=== PATIENT | male | born 1970 | race African-American/Black ===

== ENCOUNTER 2017-10-27 09:34 | Day surgery (SDC) | payer OTHER ==
[~2017-10-27] VITALS: Ht 182.9 cm; Wt 104.5 kg
[~2017-10-27 09:34] MED LIST: ATARAX,VISTARIL50 MG PO; NAPROSYN500 MG PO; OXYCODONE HCL10 MG PO; OXYCONTIN15 MG PO; SKELAXIN800 MG PO
== END 2017-10-27 10:45 | disposition home or self-care (01) ==
LOC: PAIN 09:34 → SDC 10:00 → PAIN 10:45
DX: M47.26 Other spondylosis with radiculopathy, lumbar region (principal); M51.16 Intervertebral disc disorders with radiculopathy, lumbar region; G89.29 Other chronic pain; M48.061 Spinal stenosis, lumbar region without neurogenic claudication; M16.0 Bilateral primary osteoarthritis of hip; F17.200 Nicotine dependence, unspecified, uncomplicated; Z79.891 Long term (current) use of opiate analgesic; E66.3 Overweight; Z68.31 Body mass index [BMI] 31.0-31.9, adult
CPT/HCPCS: J1030; J2250; J3010; S0020

== ENCOUNTER 2017-11-03 09:36 | Day surgery (SDC) | payer OTHER ==
[~2017-11-03] VITALS: Ht 182.9 cm; Wt 106.5 kg
[2017-11-03] MEDS ORDERED: MELOXICAM15 MG PO (10:07)
== END 2017-11-03 11:25 | disposition home or self-care (01) ==
LOC: PAIN 09:36 → SDC 10:00 → PAIN 10:00
DX: M47.26 Other spondylosis with radiculopathy, lumbar region (principal); M51.16 Intervertebral disc disorders with radiculopathy, lumbar region; M54.5 Low back pain; M16.0 Bilateral primary osteoarthritis of hip; M48.061 Spinal stenosis, lumbar region without neurogenic claudication; E66.3 Overweight; Z68.25 Body mass index [BMI] 25.0-25.9, adult; Z87.891 Personal history of nicotine dependence
CPT/HCPCS: J1030; J2250; J3010; S0020